=== PATIENT | male | born 1970 | race Two or more races ===

== ENCOUNTER 2020-12-20 17:38 | Emergency (ER) | payer SELFPAY ==
[~2020-12-20] VITALS: Ht 172.7 cm; Wt 90.0 kg
[2020-12-20 18:08] VITALS: BP 169/104
--- NOTE | 2020-12-20 19:13 | RAD ---
Exam: Left foot 3 views INDICATION: Pain TECHNIQUE: Frontal, lateral and oblique views left foot Comparisons: None FINDINGS: Bone mineralization is normal. No acute or healed fractures. Soft tissues are unremarkable. Joint spa elva are well-maintained. IMPRESSION: No acute osseous abnormality identified. Electronically signed by: Johny Lee MD (12/20/2020 7:10 PM) KEITH
--- NOTE | 2020-12-20 19:14 | RAD ---
Exam: Left knee 4 views INDICATION: Pain TECHNIQUE: Frontal, lateral and oblique views of the left knee Comparisons: None FINDINGS: Bone mineralization is normal. No acute or healed fractures. There is a cyst moderate-sized patellar fusion. Joint spaces are well-maintained. IMPRESSION: Small suprapatellar fusion without underlying osseous abnormality identified. Electronically signed by: Johny Lee MD (12/20/2020 7:11 PM) KEITH
[2020-12-20] MEDS ORDERED: DICL50TA4 PO (20:04)
[2020-12-20] MEDS ORDERED: METH4TAB2 PO (20:04)
[2020-12-20] MEDS ORDERED: HYDR-2761 PO (20:04)
--- NOTE | 2020-12-20 20:04 | PHYS DOC ---
Past Medical History Past Medical History: No Pertinent History Past Surgical History: No Surgical History Smoking Status: Never Smoker Alcohol Use: None General Adult EDM: Chief Complaint: LOWER EXT PAIN HPI: HPI: Patient is a 50 year old man with no significant medical history who presents to the ED today complaining of mild intermittent left knee pain and left foot pain, symptoms began a week ago. Denies any injuries. 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 Patient denies any fever. Denies any history of gout or arthritis. Review of Systems: Review of Systems: Constitutional: Denies fever or chills. [] Musculoskeletal: Reports left foot and left knee pain. Denies back pain or joint pain. [] Integument: Denies rash. [] Neurologic: Denies headache, focal weakness or sensory changes. [] Psychiatric: Denies depression or anxiety. [] Heart Score: C/O Chest Pain: N/A Risk Factors: Risk Factors: DM, Current or recent (<one month) smoker, HTN, HLP, family history of CAD, obesity. Risk Scores: Score 0 - 3: 2.5% MACE over next 6 weeks - Discharge Home Score 4 - 6: 20.3% MACE over next 6 weeks - Admit for Clinical Observation Score 7 - 10: 72.7% MACE over next 6 weeks - Early Invasive Strategies Allergies: Allergies: Allergies Coded Allergies Type Severity Reaction Last Updated Verified No Known Drug Allergies 12/20/20 No Physical Exam: PE: Constitutional: Well developed, well nourished, no acute distress, non-toxic appearance. [] Skin: Warm, dry, no erythema, no rash. [] Back: No tenderness, no CVA tenderness. [] Extremities: Left knee with mild swelling, no warmth, diffuse tenderness, full range of motion to the left knee including flexion and extension. Negative Sergei sign, negative Ravi sign, left foot with no obvious deformity. Tenderness on the great toe. +2 left radial pulse. Cap refill less than 2 seconds in left toes. Full range of motion to the left toes. Neurologic: Alert and oriented X 3, normal motor function, normal sensory function, no focal deficits noted. [] Psychologic: Affect normal, judgement normal, mood normal. [] Current Patient Data: Vital Signs: Vital Signs Date Time Temp Pulse Resp B/P (MAP) Pulse Ox O2 Delivery O2 Flow Rate FiO2 12/20/20 18:08 98.5 80 16 169/104 (125) 96 Room Air 98.5 EKG: EKG: [] Radiology/Procedures: Radiology/Procedures: []PROCEDURE: KNEE LEFT 4V Exam: Left knee 4 views INDICATION: Pain TECHNIQUE: Frontal, lateral and oblique views of the left knee Comparisons: None FINDINGS: Bone mineralization is normal. No acute or healed fractures. There is a cyst moderate-sized patellar fusion. Joint spaces are well-maintained. IMPRESSION: Small suprapatellar fusion without underlying osseous abnormality identified. Electronically signed by: Johny Mishra MD (12/20/2020 7:11 PM) REINABHARAT DICTATED and SIGNED BY: JOHNY MISHRA MD DATE: 12/20/[id number] 0 PROCEDURE: FOOT LEFT 3V Exam: Left foot 3 views INDICATION: Pain TECHNIQUE: Frontal, lateral and oblique views left foot Comparisons: None FINDINGS: Bone mineralization is normal. No acute or healed fractures. Soft tissues are unremarkable. Joint spaces are well-maintained. IMPRESSION: No acute osseous abnormality identified. Electronically signed by: Johny Mishra MD (12/20/2020 7:10 PM) KEITH DICTATED and SIGNED BY: JOHNY MISHRA MD DATE: 12/20/200 0 Course & Med Decision Making: Course & Med Decision Making Pertinent Labs and Imaging studies reviewed. (See chart for details) This a 50-year-old male patient presented to the ED today with left foot and left knee pain, symptoms for 1 week, no known injury. Left foot x-rays were negative for any acute findings. Left knee x-rays were noted for small suprapatellar fusion without underlying osseous abnormality identified. Ralph bandage applied to the left knee and left foot by me. Neurovascular exam is intact. Ice elevation encouraged. Provided orthopedic doctor for follow-up. Dragon Disclaimer: Carolyn Disclaimer: This electronic medical record was generated, in whole or in part, using a voice recognition dictation system. Departure Departure Impression: Primary Impression: Left foot pain Additional Impression: Effusion of knee joint, left Disposition: HOME / SELF CARE / HOMELESS Condition: STABLE Referrals: NO PCP (PCP) BRIANNA,KENNA N MD follow up in one week Patient Instructions: Knee Effusion, [id number] Additional Instructions: You were seen in the emergency room, your left knee is swollen. We encourage you to ice and elevate it, wear the Ralph bandage provided as tolerated. Follow- up with the provided orthopedic doctor in 1 week Scripts Diclofenac Sodium (DICLOFENAC SODIUM) 50 Mg Tablet.dr 1 TAB PO BID, #20 TAB 0 Refills Prov: DEDE LAZO APRN 12/20/20 Methylprednisolone (MEDROL) 4 Mg Tab.ds.pk 1 PKG PO UD, #1 PKG Prov: DEDE LAZO APRN 12/20/20 Hydrocodone Bit/Acetaminophen (HYDROCODONE-APAP 5-325 ) 1 Tab Tablet 1 TAB PO PRN Q6HRS PRN for PAIN, #10 TAB 0 Refills Prov: DEDE LAZO APRN 12/20/20 DEDE ALZO APRN Dec 20, 2020 20:04
== END 2020-12-20 20:35 | disposition home or self-care (01) ==
LOC: ER 17:38
DX: M25.462 Effusion, left knee (principal); M79.672 Pain in left foot
CPT/HCPCS: 73564; 73630; 99284